=== PATIENT | female | born 1995 | race Caucasian/White ===

== ENCOUNTER → 2018-02-13 | Outpatient (CLI) | payer OTHER ==
[2016-05-21 15:40] VITALS: BP 146/85
[~2018-02-13] MED LIST: PHEN-318 PO; SULF1TAB23 PO
[2018-02-14 00:08] LABS: RHEUMATOID FACTOR <10.0 IU/mL (0.0-13.9)
[2018-02-15 17:12] LABS: ANA INTERP Positive (.)
== END | disposition home or self-care (01) ==
LOC: LAB 14:04
DX: M25.50 Pain in unspecified joint (principal)
CPT/HCPCS: 36415; 84550; 85651; 86038; 86431